=== PATIENT | male | born 1955 | race Two or more races ===

== ENCOUNTER 2018-02-11 14:01 | Inpatient (IN) | payer OTHER ==
[2018-02-11 15:53] VITALS: BMI 20.3
--- NOTE | 2018-02-11 18:54 | HP ---
CIWA Score - CIWA Score Nausea/Vomitin-No Nausea/No Vomiting Muscle Tremors: 2 Anxiety: 3 Agitation: 2 Paroxysmal Sweats: No Perspiration Orientation: 0-Oriented Tacttile Disturbances: 1-Very Mild Itch/Numbness Auditory Disturbances: 0-None Visual Disturbances: 0-None Headache: 0-None Present CIWA-Ar Total Score: 8 Admission ROS BHS - HPI Chief Complaint: " I want to get clean, my hangovers are getting worse" alcohol withdrawal symptoms Allergies/Adverse Reactions: Allergies Allergy/AdvReac Type Severity Reaction Status Date / Time tetracycline Allergy Severe Rash Verified 02/11/18 16:40 History of Present Illness: 63 yo male with hx of alcohol dependence is here seeking detox. Last detox 2 years at [facility]. Hx : Anemia, Panic attack, anxiety and depression. Denies suicidal / homicidal ideation or hx of suicide attempt. Denies hx of seizures, reports EOTH related blackouts with last episode six weeks ago. Exam Limitations: No Limitations - Ebola screening Have you traveled outside of the country in the last 21 days: No Have you had contact with anyone from an Ebola affected area: No Have you been sick,other than usual withdrawal symptoms: No Do you have a fever: No - Review of Systems Constitutional: Loss of Appetite, Changes in sleep EENT: reports: No Symptoms Reported Respiratory: reports: No Symptoms reported Cardiac: reports: No Symptoms Reported GI: reports: Diarrhea, Poor Appetite, Poor Fluid Intake : reports: No Symptoms Reported Musculoskeletal: reports: Joint Pain (both hands) Integumentary: reports: No Symptoms Reported Neuro: reports: No Symptoms reported Endocrine: reports: Increased Thirst Hematology: reports: Anemia Psychiatric: reports: Mood/Affect Appropiate, Orientated x3, Anxious Other Systems: Reviewed and Negative Patient History - Patient Medical History Hx Anemia: Yes (enlarge red blood cells ) Hx Asthma: No Hx Chronic Obstructive Pulmonary Disease (COPD): No Hx Cancer: No Hx Cardiac Disorders: No Hx Congestive Heart Failure: No Hx Hypertension: No Hx Hypercholesterolemia: No Hx Pacemaker: No HX Cerebrovascular Accident: No Hx Seizures: No Hx Dementia: No Hx Diabetes: No Hx Gastrointestinal Disorders: No Hx Liver Disease: No Hx Genitourinary Disorders: No Hx Sexually Transmitted Disorders: No Hx Renal Disease (ESRD): No Hx Thyroid Disease: No Hx Human Immunodeficiency Virus (HIV): No (last tested September 2017) Hx Hepatitis C: No Hx Depression: Yes Hx Suicide Attempt: No Hx Bipolar Disorder: No Hx Schizophrenia: No - Patient Surgical History Past Surgical History: Yes Other Surgical History: Tonsillectomy in his 20"s. Anesthesia Reaction: No - PPD History Previous Implant?: No Documented Results: Positive w/o proof Implanted On Prior R Admission?: No PPD to be Administered?: No - Smoking Cessation Smoking history: Current every day smoker Have you smoked in the past 12 months: Yes Aproximately how many cigarettes per day: 20 Hx Chewing Tobacco Use: No Initiated information on smoking cessation: Yes 'Breaking Loose' booklet given: 02/11/18 - Substance & Tx. History Hx Alcohol Use: Yes Hx Substance Use: Yes Substance Use Type: Alcohol Hx Substance Use Treatment: Yes (Last detox 2 years at [facility]) - Substances Abused Alcohol Route: Oral Frequency: Daily Amount used: 4-8 12 oz beers Age of first use: 30 Date of Last Use: 02/10/18 Family Disease History - Family Disease History Family Disease History: CA: Mother ( stomach CA ), Sister ( stomach CA ) Admission Physical Exam S - Vital Signs Vital Signs: Vital Signs - 24 hr 02/11/18 15:49 Temperature 97.6 F Pulse Rate 65 Respiratory 20 Rate Blood Pressure 135/80 - Physical General Appearance: Yes: Appropriately Dressed, Thin, Anxious HEENTM: Yes: EOMI, Hearing grossly Normal, Normal ENT Inspection, Normocephalic , Normal Voice, MAC, Pharynx Normal, Tm's normal Respiratory: Yes: Chest Non-Tender, Lungs Clear, Normal Breath Sounds, No Respiratory Distress, No Accessory Muscle Use Neck: Yes: Within Normal Limits Breast: Yes: Breast Exam Deferred Cardiology: Yes: Regular Rhythm, Regular Rate Abdominal: Yes: Normal Bowel Sounds, Non Tender, Flat, Soft Back: Yes: Normal Inspection Musculoskeletal: Yes: full range of Motion, Gait Steady, Pelvis Stable, Other ( joint pain on both hands, no erythema or effusion) Extremities: Yes: Normal Capillary Refill, Normal Inspection, Normal Range of Motion, Non-Tender Neurological: Yes: industrial methods consultant II-XII NML intact, Fully Oriented, Alert, Motor Strength 5/5, Depressed Affect Integumentary: Yes: Normal Color, Warm, Moist Lymphatic: Yes: Within Normal Limits Cleared for Admission BHS - Detox or Rehab [facility] Level of Care: Medically Supervised Detox Regimen/Protocol: Valium [facility] Breath Alcohol Content Breath Alcohol Content: 0 Urine Drug Screen - Results Drug Screen Negative: Yes
[2018-02-11] MEDS ORDERED: diazePAM 5 MG TABLET PO PRN (19:08)
[2018-02-11] MEDS ORDERED: MENTHOL/PHENOL 1 EACH UD MM PRN (19:08)
[2018-02-11] MEDS ORDERED: MAGNESIUM CITRATE 300 ML BOTTLE PO PRN (19:08)
[2018-02-11] MEDS ORDERED: hydrOXYzine PAMOATE 50 MG CAPSULE (FP) PO PRN (19:08)
[2018-02-11] MEDS ORDERED: NICOTINE POLACRILEX 2 MG GUM BUC PRN (19:08)
[2018-02-11] MEDS ORDERED: guaiFENesin/D-METHORPHAN HB 10 ML UNIT-DOSE CUPS PO PRN (19:08)
[2018-02-11] MEDS ORDERED: MAG HYDROX/AL HYDROX/SIMETH 30 ML UNIT-DOSE CUP PO PRN (19:08)
[2018-02-11] MEDS ORDERED: IBUPROFEN 400 MG TABLET (FP) PO PRN (19:08)
[2018-02-11] MEDS ORDERED: LOPERAMIDE HCL 2 MG CAPSULE PO PRN (19:08)
[2018-02-11] MEDS ORDERED: P-EPHED 60MG/TRIPROLIDI 2.5MG TABLET PO PRN (19:08)
[2018-02-11] MEDS ORDERED: ACETAMINOPHEN 325 MG TABLET (FP) PO PRN (19:08)
[2018-02-11] MEDS ORDERED: MAGNESIUM HYDROX 2400MG/30ML ORAL SUSPENSION 30 ML CUP PO PRN (19:08)
[2018-02-11] MEDS ORDERED: diazePAM 5 MG TABLET PO ONE (19:15)
[2018-02-11] MEDS: MELATONIN 5 MG TABLETS PO PRN (22:11)
[2018-02-11] MEDS: diazePAM 5 MG TABLET PO SCH (22:11)
[2018-02-11] MEDS: THIAMINE HCL 100 MG TABLET (FP) PO SCH (22:11)
[2018-02-11 22:12] LABS: URINE APPEARANCE SLCLOUDY; URINE BILIRUBIN NEGATIVE (<2.0 mg/dL); URINE COLOR YELLOW; URINE GLUCOSE (UA) NEGATIVE (NEGATIVE); URINE KETONE NEGATIVE (NEGATIVE); URINE LEUK ESTERASE NEGATIVE (NEGATIVE); URINE NITRITE NEGATIVE (NEGATIVE); URINE PROTEIN NEGATIVE (NEGATIVE); URINE UROBILINOGEN 4.0 E.U/dl mg/dL (0.2-1.0)
[2018-02-12] MEDS: diazePAM 5 MG TABLET PO SCH ×3 (05:46→22:15)
--- NOTE | 2018-02-12 07:45 | CONSULT ---
[facility] Psychiatric Consult - Data Date of interview: 02/12/18 Admission source: [facility] Identifying data: 63 yo male with hx of alcohol dependence is here seeking detox. Last detox 2 years at [facility]. Hx : Anemia, Panic attack, anxiety and depression. Denies suicidal / homicidal ideation or hx of suicide attempt. Denies hx of seizures, reports EOTH related blackouts with last episode six weeks ago. Substance Abuse History: - Smoking Cessation. Smoking history: Current every day smoker. Have you smoked in the past 12 months: Yes. Aproximately how many cigarettes per day: 20. Hx Chewing Tobacco Use: No. Initiated information on smoking cessation: Yes. 'Breaking Loose' booklet given: 02/11/18. - Substance & Tx. History. Hx Alcohol Use: Yes. Hx Substance Use: Yes. Substance Use Type : Alcohol. Hx Substance Use Treatment: Yes (Last detox 2 years at [facility]). - Substances Abused. Alcohol. Route: Oral. Frequency: Daily. Amount used: 4-8 12 oz beers. Age of first use: 30. Date of Last Use: 02/10/18 Medical History: Anemia history Psychiatric History: PATIENT REPORTS HISTORY OF DEPRESSION AND ANXIETY, REPORTS NO PSYCHIATRIC HOSPITALIZATION HISTORY,. Patient reports taking prior to admission: Prozac 20mg popqd Physical/Sexual Abuse/Trauma History: Denies Additional Comment: Prozac 20mg popqd Mental Status Exam - Mental Status Exam Alert and Oriented to: Person Cognitive Function: Fair Patient Appearance: Well Groomed Mood: Anxious Affect: Mood Congruent Patient Behavior: Cooperative Speech Pattern: Appropriate Voice Loudness: Normal Thought Process: Goal Oriented Thought Disorder: Being Controlled Hallucinations: Denies Suicidal Ideation: Denies Homicidal Ideation: Denies Insight/Judgement: Fair Sleep: Difficulty falling asleep Appetite: Fair Muscle strength/Tone: Normal Gait/Station: Normal Additional Comments: Prozac 20mg popqd Psychiatric Findings - Problem List ([place] 1, 2,3) (1) Nicotine dependence Current Visit: Yes Status: Acute (2) Alcohol dependence with withdrawal Current Visit: Yes Status: Acute Qualifiers: Complication of substance-induced condition: uncomplicated Qualified Code(s ): F10.230 - Alcohol dependence with withdrawal, uncomplicated (3) Uncomplicated sedative, hypnotic or anxiolytic withdrawal Current Visit: Yes Status: Acute - Initial Treatment Plan Initial Treatment Plan: Prozac 20mg popqd
[2018-02-12 09:44] LABS: HEMATOCRIT 34.3 % (35.4-49); MEAN CELL VOLUME 117.7 fl (80-96); MEAN PLT VOLUME 6.8 fl (7.5-11.1); PLATELET COUNT 131 K/MM3 (134-434); RBC 2.92 M/mm3 (4.00-5.60); RDW 15.2 % (11.9-15.9); WHITE BLOOD COUNT 3.1 K/mm3 (4.0-10.0)
[2018-02-12 09:45] LABS: MCH 41.2 pg (25.7-33.7)
[2018-02-12 10:00] LABS: CHLORIDE 107 mmol/L (98-107); POTASSIUM 3.9 mmol/L (3.5-5.1); SODIUM 143 mmol/L (136-145)
[2018-02-12 10:23] LABS: ALBUMIN 3.2 g/dl (3.4-5.0); ALK PHOS 36 U/L (45-117); ANION GAP 6 (8-16); BILIRUBIN,TOTAL 0.5 mg/dL (0.2-1.0); BLOOD UREA NITROGEN 14 mg/dL (7-18); CALCIUM 8.3 mg/dL (8.5-10.1); CO2 30 mmol/L (21-32); CREATININE 0.7 mg/dL (0.7-1.3); GLUCOSE,RANDOM 92 mg/dL (74-106); SGOT/AST 20 U/L (15-37); SGPT/ALT 18 U/L (12-78); TOT PROT 5.7 g/dl (6.4-8.2)
[2018-02-12] MEDS: PRENATAL VITAMINS W/ FOLIC ACID TABLET (FP) PO SCH (10:59)
[2018-02-12] MEDS: FLUoxetine HCL 20 MG CAPSULE (FP) PO SCH (10:59)
[2018-02-12] MEDS: NICOTINE 21 MG/24 HOURS TOPICAL PATCH TD SCH (11:01)
--- NOTE | 2018-02-12 11:50 | PN ---
S CIWA - CIWA Score Nausea/Vomitin Muscle Tremors: 3 Anxiety: 2 Agitation: 2 Paroxysmal Sweats: 1-Minimal Palms Moist Orientation: 0-Oriented Tacttile Disturbances: 1-Very Mild Itch/Numbness Auditory Disturbances: 1-Very Mild Visual Disturbances: 0-None Headache: 2-Mild CIWA-Ar Total Score: 15 BHS Progress Note (SOAP) Subjective: alert,irritable,anxious,interrupted sleep,tremor,pain in the body,poor oral intake Objective: 02/12/18 11:46 Vital Signs Temperature 97.5 F L 02/12/18 09:23 Pulse Rate 53 L 02/12/18 09:23 Respiratory Rate 18 02/12/18 09:23 Blood Pressure 105/65 02/12/18 09:23 O2 Sat by Pulse Oximetry (%) ekg sinus bradycardia,lvh at/atc 428/413 rate 56/min no chest pain,no sob,no dizziness Laboratory Last Values WBC 3.1 K/mm3 (4.0-10.0) L 02/12/18 07:30 RBC 2.92 M/mm3 (4.00-5.60) L 02/12/18 07:30 Hgb 12.0 GM/dL (11.7-16.9) 02/12/18 07:30 Hct 34.3 % (35.4-49) L 02/12/18 07:30 MCV 117.7 fl (80-96) H 02/12/18 07:30 MCH 41.2 pg (25.7-33.7) H 02/12/18 07:30 MCHC 35.0 g/dl (32.0-35.9) 02/12/18 07:30 RDW 15.2 % (11.9-15.9) 02/12/18 07:30 Plt Count 131 K/MM3 (134-434) L 02/12/18 07:30 MPV 6.8 fl (7.5-11.1) L 02/12/18 07:30 Sodium 143 mmol/L (136-145) 02/12/18 07:30 Potassium 3.9 mmol/L (3.5-5.1) 02/12/18 07:30 Chloride 107 mmol/L (98-107) 02/12/18 07:30 Carbon Dioxide 30 mmol/L (21-32) 02/12/18 07:30 Anion Gap 6 (8-16) L 02/12/18 07:30 BUN 14 mg/dL (7-18) 02/12/18 07:30 Creatinine 0.7 mg/dL (0.7-1.3) 02/12/18 07:30 Creat Clearance w eGFR > 60 (>60) 02/12/18 07:30 Random Glucose 92 mg/dL (74-106) 02/12/18 07:30 Calcium 8.3 mg/dL (8.5-10.1) L 02/12/18 07:30 Total Bilirubin 0.5 mg/dL (0.2-1.0) 02/12/18 07:30 AST 20 U/L (15-37) 02/12/18 07:30 ALT 18 U/L (12-78) 02/12/18 07:30 Alkaline Phosphatase 36 U/L (45-117) L 02/12/18 07:30 Total Protein 5.7 g/dl (6.4-8.2) L 02/12/18 07:30 Albumin 3.2 g/dl (3.4-5.0) L 02/12/18 07:30 Urine Color Yellow 02/11/18 20:30 Urine Appearance Slcloudy 02/11/18 20:30 Urine pH 7.0 (5.0-8.0) 02/11/18 20:30 Ur Specific [place] 1.017 (1.001-1.035) 02/11/18 20:30 Urine Protein Negative (NEGATIVE) 02/11/18 20:30 Urine Glucose (UA) Negative (NEGATIVE) 02/11/18 20:30 Urine Ketones Negative (NEGATIVE) 02/11/18 20:30 Urine Blood Negative (NEGATIVE) 02/11/18 20:30 Urine Nitrite Negative (NEGATIVE) 02/11/18 20:30 Urine Bilirubin Negative (<2.0 mg/dL) 02/11/18 20:30 Urine Urobilinogen 4.0 e.u/dl mg/dL (0.2-1.0) 02/11/18 20:30 Ur Leukocyte Esterase Negative (NEGATIVE) 02/11/18 20:30 02/12/18 11:49 Assessment: 02/12/18 11:48 withdrawal symptom Plan: continue detox,hydration
--- NOTE | 2018-02-12 12:50 | EKG ---
Test Reason : Blood Pressure : / mmHG Vent. Rate : 056 BPM Atrial Rate : 056 BPM P-R Int : 152 ms QRS Dur : 098 ms QT Int : 428 ms P-R-T Axes : 075 055 050 degrees QTc Int : 413 ms SINUS BRADYCARDIA MODERATE VOLTAGE CRITERIA FOR LVH, MAY BE NORMAL VARIANT BORDERLINE ECG NO PREVIOUS ECGS AVAILABLE Confirmed by ELLA PATINO MD ([id number]) on 02/12/2018 12:50:09 PM Referred By: Confirmed By:ELLA PATINO MD
[2018-02-12] MEDS: THIAMINE HCL 100 MG TABLET (FP) PO SCH (22:15)
[2018-02-13] MEDS: diazePAM 5 MG TABLET PO SCH ×2 (10:06→22:12)
[2018-02-13] MEDS: FLUoxetine HCL 20 MG CAPSULE (FP) PO SCH (10:06)
[2018-02-13] MEDS: PRENATAL VITAMINS W/ FOLIC ACID TABLET (FP) PO SCH (10:06)
[2018-02-13] MEDS: NICOTINE 21 MG/24 HOURS TOPICAL PATCH TD SCH (10:07)
--- NOTE | 2018-02-13 11:15 | PN ---
S CIWA - CIWA Score Nausea/Vomitin Muscle Tremors: 3 Anxiety: 2 Agitation: 3 Paroxysmal Sweats: 1-Minimal Palms Moist Orientation: 0-Oriented Tacttile Disturbances: 1-Very Mild Itch/Numbness Auditory Disturbances: 1-Very Mild Visual Disturbances: 0-None Headache: 2-Mild CIWA-Ar Total Score: 16 BHS Progress Note (SOAP) Subjective: alert,irritable,anxious,interrupted sleep tremor Objective: 02/13/18 11:14 Vital Signs Temperature 97.7 F 02/13/18 09:48 Pulse Rate 58 L 02/13/18 09:48 Respiratory Rate 16 02/13/18 09:48 Blood Pressure 94/56 02/13/18 09:48 O2 Sat by Pulse Oximetry (%) Assessment: 02/13/18 11:14 withdrawal symptom Plan: continue detox
[2018-02-13] MEDS: THIAMINE HCL 100 MG TABLET (FP) PO SCH (22:12)
[2018-02-13] MEDS: MELATONIN 5 MG TABLETS PO PRN (22:12)
[2018-02-14] MEDS: PRENATAL VITAMINS W/ FOLIC ACID TABLET (FP) PO SCH (10:41)
[2018-02-14] MEDS: FLUoxetine HCL 20 MG CAPSULE (FP) PO SCH (10:41)
[2018-02-14] MEDS: diazePAM 5 MG TABLET PO SCH ×2 (10:41→22:21)
[2018-02-14] MEDS: NICOTINE 21 MG/24 HOURS TOPICAL PATCH TD SCH (10:41)
--- NOTE | 2018-02-14 12:49 | PN ---
S Progress Note (SOAP) Subjective: alert,interrupted sleep Objective: 02/14/18 12:48 Vital Signs Temperature 97.2 F L 02/14/18 09:59 Pulse Rate 61 02/14/18 09:59 Respiratory Rate 16 02/14/18 09:59 Blood Pressure 112/66 02/14/18 09:59 O2 Sat by Pulse Oximetry (%) Assessment: 02/14/18 12:48 withdrawal symptom Plan: continue detox,discharge in am
[2018-02-14] MEDS: THIAMINE HCL 100 MG TABLET (FP) PO SCH (22:21)
[2018-02-14] MEDS: MELATONIN 5 MG TABLETS PO PRN (22:22)
[2018-02-15 07:43] VITALS: BP 122/75; PULSE 55; TEMP 97.3
[2018-02-15] MEDS: PRENATAL VITAMINS W/ FOLIC ACID TABLET (FP) PO SCH (09:30)
[2018-02-15] MEDS: FLUoxetine HCL 20 MG CAPSULE (FP) PO SCH (09:31)
--- NOTE | 2018-02-15 09:54 | DS ---
[facility] Detox Discharge Summary Admission Date: 02/11/18 Discharge Date: 02/15/18 - History Present History: Alcohol Dependence Additional Comments: 63 years old male admitted on 02/11/18 for alcohol withdrawal sx completed alcohol detox regimen tolerated well denies alcohol withdrawal sx alert oriented x 3 no acute distress aftercare [facility] services patient prefers to follow up with his primary care provider at [facility] - Physical Exam Results Vital Signs: Vital Signs Temperature 97.3 F L 02/15/18 07:43 Pulse Rate 55 L 02/15/18 07:43 Respiratory Rate 16 02/15/18 07:43 Blood Pressure 122/75 02/15/18 07:43 O2 Sat by Pulse Oximetry (%) Pertinent Admission Physical Exam Findings: alcohol withdrawal sx Vital Signs Temperature 97.3 F L 02/15/18 07:43 Pulse Rate 55 L 02/15/18 07:43 Respiratory Rate 16 02/15/18 07:43 Blood Pressure 122/75 02/15/18 07:43 O2 Sat by Pulse Oximetry (%) Laboratory Last Values WBC 3.1 K/mm3 (4.0-10.0) L 02/12/18 07:30 RBC 2.92 M/mm3 (4.00-5.60) L 02/12/18 07:30 Hgb 12.0 GM/dL (11.7-16.9) 02/12/18 07:30 Hct 34.3 % (35.4-49) L 02/12/18 07:30 MCV 117.7 fl (80-96) H 02/12/18 07:30 MCH 41.2 pg (25.7-33.7) H 02/12/18 07:30 MCHC 35.0 g/dl (32.0-35.9) 02/12/18 07:30 RDW 15.2 % (11.9-15.9) 02/12/18 07:30 Plt Count 131 K/MM3 (134-434) L 02/12/18 07:30 MPV 6.8 fl (7.5-11.1) L 02/12/18 07:30 Sodium 143 mmol/L (136-145) 02/12/18 07:30 Potassium 3.9 mmol/L (3.5-5.1) 02/12/18 07:30 Chloride 107 mmol/L (98-107) 02/12/18 07:30 Carbon Dioxide 30 mmol/L (21-32) 02/12/18 07:30 Anion Gap 6 (8-16) L 02/12/18 07:30 BUN 14 mg/dL (7-18) 02/12/18 07:30 Creatinine 0.7 mg/dL (0.7-1.3) 02/12/18 07:30 Creat Clearance w eGFR > 60 (>60) 02/12/18 07:30 Random Glucose 92 mg/dL (74-106) 02/12/18 07:30 Calcium 8.3 mg/dL (8.5-10.1) L 02/12/18 07:30 Total Bilirubin 0.5 mg/dL (0.2-1.0) 02/12/18 07:30 AST 20 U/L (15-37) 02/12/18 07:30 ALT 18 U/L (12-78) 02/12/18 07:30 Alkaline Phosphatase 36 U/L (45-117) L 02/12/18 07:30 Total Protein 5.7 g/dl (6.4-8.2) L 02/12/18 07:30 Albumin 3.2 g/dl (3.4-5.0) L 02/12/18 07:30 Urine Color Yellow 02/11/18 20:30 Urine Appearance Slcloudy 02/11/18 20:30 Urine pH 7.0 (5.0-8.0) 02/11/18 20:30 Ur Specific [place] 1.017 (1.001-1.035) 02/11/18 20:30 Urine Protein Negative (NEGATIVE) 02/11/18 20:30 Urine Glucose (UA) Negative (NEGATIVE) 02/11/18 20:30 Urine Ketones Negative (NEGATIVE) 02/11/18 20:30 Urine Blood Negative (NEGATIVE) 02/11/18 20:30 Urine Nitrite Negative (NEGATIVE) 02/11/18 20:30 Urine Bilirubin Negative (<2.0 mg/dL) 02/11/18 20:30 Urine Urobilinogen 4.0 e.u/dl mg/dL (0.2-1.0) 02/11/18 20:30 Ur Leukocyte Esterase Negative (NEGATIVE) 02/11/18 20:30 RPR Titer Nonreactive (NONREACTIVE) 02/12/18 07:30 lab noted health teaching on alcohol misuse related health issues patient has an appointment with his primary care provider - Treatment Hospital Course: Detox Protocol Followed, Detoxed Safely, Responded well, Discharged Condition Good, Rehab Referral Accepted Patient has Accepted a Rehab Referral to: [facility] - Medication Discharge Medications: Ambulatory Orders clonazePAM [Klonopin -] 0.5 mg PO BID 02/11/18 Fluoxetine HCl [Prozac -] 20 mg PO DAILY #30 capsule 02/12/18 - Diagnosis (1) Alcohol dependence with withdrawal Current Visit: Yes Status: Acute Qualifiers: Complication of substance-induced condition: uncomplicated Qualified Code(s ): F10.230 - Alcohol dependence with withdrawal, uncomplicated (2) Nicotine dependence Current Visit: Yes Status: Acute Qualifiers: Nicotine product type: cigarettes Substance use status: in withdrawal Qualified Code(s): F17.213 - Nicotine dependence, cigarettes, with withdrawal (3) Uncomplicated sedative, hypnotic or anxiolytic withdrawal Current Visit: Yes Status: Acute (4) Anxiety Current Visit: Yes Status: Suspected - AMA Did Patient Leave Against Medical Advice: No
[2018-02-15] MEDS ORDERED: diazePAM 5 MG TABLET PO SCH (10:00)
== END 2018-02-15 09:45 | disposition home or self-care (01) | DRG 775 ==
LOC: YASAS 14:01 → Y6N 17:22
PROVIDERS: ADMIT Surgery; ATTEND Surgery
PROC: HZ2ZZZZ Detoxification Services for Substance Abuse Treatment (ICD-10-PCS; principal; 2018-02-11)
DX: F10.230 Alcohol dependence with withdrawal, uncomplicated (principal); F13.230 Sedative, hypnotic or anxiolytic dependence with withdrawal, uncomplicated; F17.213 Nicotine dependence, cigarettes, with withdrawal; F41.9 Anxiety disorder, unspecified; R00.1 Bradycardia, unspecified; D64.89 Other specified anemias; Z88.1 Allergy status to other antibiotic agents
CPT/HCPCS: 36415; 71046-TC-FY; 80053; 81003; 85027; 86593; 93005; 93010